=== PATIENT | male | born 1965 | race Caucasian/White ===

== ENCOUNTER 2019-04-09 05:28 | Emergency (ER) | payer OTHER ==
[2019-04-09 05:36] VITALS: BP 136/81
--- NOTE | 2019-04-09 05:56 | XRAY Report ---
Reason: L ring finger post reduction PIP joint dislocation Procedure Date: 04/09/2019 Accession Number: [id number] / [id number] Procedure: XR - Finger(s) LT CPT Code: FULL RESULT: EXAM: LEFT 1st/2nd/3rd/4th/5th DIGIT RADIOGRAPHY EXAM DATE: 04/09/2019 05:46 AM. CLINICAL HISTORY: L ring finger post reduction PIP joint dislocation. COMPARISON: None. TECHNIQUE: 3 views. FINDINGS: Bones: Small bone fragment at the lateral aspect of the head of the proximal phalanx of the ring finger. Remaining bone architecture and alignment are intact. Joints: Normal. No subluxations. Soft Tissues: Soft tissue swelling about the middle interphalangeal joint of the ring finger. IMPRESSION: Findings which may reflect a small fracture at the DIP joint status post reduction. RADIA
--- NOTE | 2019-04-09 06:26 | ED Physician Documentation ---
PD HPI UPPER EXT INJURY - Stated complaint Stated Complaint: 3' FALL - Chief complaint Chief Complaint: Trauma Ext - History obtained from History obtained from: Patient, EMS - History of Present Illness Location: Left, Finger (ring) Type of injury: Fall Where injury occurred: Work Timing - onset: Today Timing - duration: Minutes Timing - details: Abrupt onset, Still present Improved by: Rest, Immobilization Worsened by: Moving, Palpating Associated symptoms: Swelling. 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 He has landed on his hand and dislocated his left ring finger at the PIP joint. Review of Systems Constitutional: denies: Fever Respiratory: denies: Cough GI: denies: Vomiting, Constipation, Diarrhea PD PAST MEDICAL HISTORY - Past Medical History Past Medical History: No - Past Surgical History Past Surgical History: No - Present Medications Home Medications: Ambulatory Orders Medication Instructions Recorded Confirmed HYDROcod/ACETAM 5/325 [Vicodin 1 - 2 ea PO Q6H PRN #15 tablet 07/27/13 5/325] No Known Home Medications 07/27/13 07/27/13 - Allergies Allergies/Adverse Reactions: Allergies Allergy/AdvReac Type Severity Reaction Status Date / Time Penicillins Allergy Intermediate Rash Verified 04/09/19 05:31 - Social History Does the pt smoke?: No Smoking Status: Never smoker Does the pt drink ETOH?: Yes Does the pt have substance abuse?: No - Immunizations Immunizations are current?: No - POLST Patient has POLST: No PD ED PE NORMAL - Vitals Vital signs reviewed: Yes (hypertensive mild ) - General General: Alert and oriented X 3, No acute distress, Well developed/nourished - HEENT HEENT: Atraumatic, PERRL, EOMI - Neck Neck: Supple, no meningeal sign, No bony TTP - Respiratory Respiratory: No respiratory distress - Derm Derm: Normal color, Warm and dry, No rash - Extremities Extremities: Other (There is dislocation deformity of the PIP joint of the left hand The distal portion is displaced volar. This is reduced with traction and flexion with resultant appearnce of normal appearing finger distal n/v is intact. ) - Neuro Neuro: Alert and oriented X 3, lens edger 2-12 intact, No motor deficit, No sensory deficit, Normal speech Eye Opening: Spontaneous Motor: Obeys Commands Verbal: Oriented GCS Score: 15 - Psych Psych: Normal mood, Normal affect Results - Vitals Vitals: Vital Signs - 24 hr 04/09/19 05:31 Temperature 36.6 C Heart Rate 75 Respiratory 16 Rate Blood Pressure 136/81 H O2 Saturation 98 Oxygen O2 Source Room air - Rads (name of study) finger Radiology: Prelim report reviewed (Impression: Findings which may reflect a small fracture at the PIP joint status post reduction), EMP read indepedently, See rad report Procedures - Reduction Body part reduced: Left, Finger (ring) Fracture or dislocation: Dislocation Anesthesia: Other (soothing voice) Reduction aftercare: NV intact, Xray confirms reduction, Splint applied, Patient tolerated well PD MEDICAL DECISION MAKING - ED course Complexity details: reviewed results, re-evaluated patient, considered differential, d/w patient ED course: 53-year-old male with a fall inside of a semi-at work today has dislocated his left ring finger and this is reduced shortly after his arrival here in post reduction films show a tiny chip fragment of the lateral aspect of the proximal phalange. The patient's fingers are eileen taped he is instructed to wear this for approximately 2 weeks at which time he should be able to use his finger without difficulty. Departure - Departure Disposition: 01 Home, Self Care Clinical Impression: Dislocation of proximal interphalangeal joint of left ring finger, initial encounter Condition: Stable Instructions: ED Dislocation Finger Redu Follow-Up: Jp Count Includes [facility] [Provider Group] Forms: Activity restrictions
== END 2019-04-09 06:40 | disposition home or self-care (01) ==
LOC: EDUNIT# → ED 05:28
DX: S63.295A Dislocation of distal interphalangeal joint of left ring finger, initial encounter (principal); W18.09XA Striking against other object with subsequent fall, initial encounter; Y93.89 Activity, other specified; Y99.0 Civilian activity done for income or pay
CPT/HCPCS: 1040M; 26770; 73140; 99282; 99283

== ENCOUNTER 2019-05-09 09:35 | Outpatient (CLI) | payer OTHER ==
--- NOTE | 2019-05-09 11:51 | XRAY Report ---
Reason: DISLOCATION OF PROXIMAL INTERPHALANGEAL JOINT OF L Procedure Date: 05/09/2019 Accession Number: [id number] / [id number] Procedure: XR - Hand 3 View LT CPT Code: FULL RESULT: EXAM: LEFT HAND RADIOGRAPHY EXAM DATE: 05/09/2019 09:57 AM. CLINICAL HISTORY: Dislocation of proximal interphalangeal joint of left 4th digit. Still has pain and difficulty straightening it out/placing it flat. COMPARISON: FINGER(S) LT 04/09/2019 5:29 AM. TECHNIQUE: 3 views. FINDINGS: Bones: Again seen is a 1 mm thin linear osseous density projecting over the proximal interphalangeal joint space medially, 4th finger. This is felt to represent an avulsion injury, possibly intra-articular. No other fractures are detected. Joints: No dislocation. Soft Tissues: Persistent soft tissue swelling is seen about the proximal 4th interphalangeal joint. IMPRESSION: Redemonstration of small osseous fragment in the region of the 4th proximal interphalangeal joint as described. RADIA
== END 2019-05-09 09:36 | disposition home or self-care (01) ==
LOC: DI 09:35
PROVIDERS: ATTEND Family Medicine
DX: S63.285A Dislocation of proximal interphalangeal joint of left ring finger, initial encounter (principal)

== ENCOUNTER 2024-03-03 07:59 | Observation (INO) ==
[2024-03-03 08:39] LABS: BASOPHILS # (AUTO) 0.1 10^3/uL (0.0-0.1); BASOPHILS % (AUTO) 0.5 %; HCT - HEMATOCRIT 33.1 % (42.0-52.0); HGB - HEMOGLOBIN 11.5 g/dL (14.0-18.0); LYMPHOCYTES # (AUTO) 0.5 10^3/uL (1.5-3.5); LYMPHOCYTES % (AUTO) 4.7 %; MEAN CORPUSCULAR HEMOGLOBIN 31.2 pg (27.0-31.0); MEAN CORPUSCULAR HGB CONC 34.7 g/dL (32.0-36.0); MEAN CORPUSCULAR VOLUME 89.7 fL (80.0-94.0); MEAN PLATELET VOLUME 8.9 fL (7.4-11.4); MONOCYTES # (AUTO) 0.6 10^3/uL (0.0-1.0); MONOCYTES % (AUTO) 5.7 %; NEUTROPHILS # (AUTO) 9.4 10^3/uL (1.5-6.6); NEUTROPHILS % (AUTO) 88.8 %; PLT - PLATELET COUNT 477 10^3/uL (130-450); RED BLOOD COUNT 3.69 10^6/uL (4.70-6.10); RED CELL DISTRIBUTION WIDTH 11.6 % (12.0-15.0); WHITE BLOOD COUNT 10.6 x10^3/uL (4.8-10.8)
--- NOTE | 2024-03-03 08:42 | ED Physician Documentation ---
PD HPI CHEST PAIN - Stated complaint Stated Complaint: CHEST PAIN,SOA - Chief complaint Chief Complaint: Cardiac - History obtained from History obtained from: Patient - History of Present Illness Timing - onset: Yesterday Timing - duration: Days (1-2), Weeks (onset of initial illness 3 weeks ago along with other family members with COVID. pt remained ill with cough which has incresed along with dyspnea and right poleuritic chest pain the past few days, concurrent with general weakness, confusion, and somnolence. worse pain right chest with cough/breath.) Timing - details: Gradual onset, Still present Quality: Sharp, Stabbing, Pain Location: Right chest (lateral lower ribs/costochondral area.) Radiation: Back. No: Abdominal Worsened by: Inspiration Associated symptoms: Shortness of air, Nausea (with less appetite and intake for the past week.), General Weakness, Cough Recently seen: Not recently seen Review of Systems Constitutional: reports: Fever Nose: reports: Congestion Cardiac: denies: Palpitations, Pedal edema, Calf pain Respiratory: reports: Dyspnea, Cough, Wheezing GI: reports: Nausea. denies: Vomiting, Diarrhea Neurologic: reports: Generalized weakness, Altered mental status (the past 1-2 days) PD PAST MEDICAL HISTORY - Past Medical History Past Medical History: No Cardiovascular: None Respiratory: None - Past Surgical History Past Surgical History: No - Present Medications Home Medications: Ambulatory Orders Medication Instructions Recorded Confirmed No Known Home Medications 03/03/24 03/03/24 - Allergies Allergies/Adverse Reactions: Allergies Allergy/AdvReac Type Severity Reaction Status Date / Time Penicillins Allergy Intermediate Rash Verified 03/03/24 08:23 - Social History Does the pt smoke?: No Smoking Status: Never smoker Does the pt drink ETOH?: Yes Does the pt have substance abuse?: No - Immunizations Immunizations are current?: No - POLST Patient has POLST: No PD ED PE NORMAL - Vitals Vital signs reviewed: Yes - General General: No: Alert and oriented X 3 (somewhat blank look, but does answer questions sluggishly. ), Well developed/nourished (frail appearance. ) - HEENT HEENT: Pharynx benign. No: Moist mucous membranes - Neck Neck: Supple, no meningeal sign, No adenopathy - Cardiac Cardiac: RRR, No murmur - Respiratory Respiratory: No respiratory distress, Other (right chestwall tednerness without crepitance at lateral costal margin. No rash nor sores. Not tender in back.). No: Clear bilaterally (coarse sounds both sides, more to right lower. No crackles. Diffuse mild exp wheezing. No accessory muscle use. ) - Abdomen Abdomen: Soft, Non tender - Derm Derm: Normal color, Warm and dry - Extremities Extremities: No edema, No calf tenderness / cord - Neuro Neuro: No motor deficit. No: Alert and oriented X 3 (person and somewhat place. sluggish responses. ), Normal speech Eye Opening: Spontaneous Motor: Obeys Commands Verbal: Confused GCS Score: 14 Results - Vitals Vitals: Vital Signs - 24 hr 03/03/24 03/03/24 03/03/24 08:17 09:19 09:44 Temperature 36 C L Heart Rate 88 69 76 Respiratory 41 H 17 16 Rate Blood Pressure 140/71 H 134/81 H O2 Saturation 99 95 03/03/24 03/03/24 03/03/24 10:14 10:30 11:00 Temperature Heart Rate 80 75 64 Respiratory 16 15 12 Rate Blood Pressure 140/66 H 132/71 H 140/75 H O2 Saturation 97 100 98 03/03/24 03/03/24 11:30 12:00 Temperature 36.2 C L Heart Rate 76 91 Respiratory 16 18 Rate Blood Pressure 139/74 H 143/77 H O2 Saturation 96 98 Oxygen O2 Source Room air - Labs Labs: Laboratory Tests 03/03/24 03/03/24 03/03/24 08:33 08:33 08:33 WBC 10.6 RBC 3.69 L Hgb 11.5 L Hct 33.1 L MCV 89.7 MCH 31.2 H MCHC 34.7 RDW 11.6 L Plt Count 477 H MPV 8.9 Neut # (Auto) 9.4 H Lymph # (Auto) 0.5 L [place] # (Auto) 0.6 Eos # (Auto) 0.0 Baso # (Auto) 0.1 Absolute Nucleated RBC 0.00 Nucleated RBC % 0.0 Sodium 121 L Potassium 3.6 Chloride 87 L Carbon Dioxide 25 Anion Gap 9.0 BUN 8 Creatinine 0.5 L Estimated GFR (MDRD) 170 Glucose 137 H Calcium 9.1 Magnesium 1.5 L Total Bilirubin 0.7 AST 21 ALT 27 Alkaline Phosphatase 42 Troponin I High Sens 2.4 Total Protein 7.2 Albumin 3.7 Globulin 3.5 Albumin/Globulin Ratio 1.1 Lipase < 10 L - Rads (name of study) chest xray Relevant Findings:: Prelim report reviewed (infiltrates bilateral lower lungs, atelectasis versus developing pneumonia. ), EMP independent interpretation of test PD Medical Decision Making - ED course Complexity details: reviewed results (CXR shows infiltrates lower lungs, atelectasis vs pneumonia; clinically certainly fits for pneumonia. ), considered differential (COVID 3 weeks ago with persistent illness and cough/dyspnea that is now worsening the past several days, associated with poor appetite, weakness, confused, worse dyspnea and right pleuritic chest pain. No edema.), d/w patient, d/w edi consultant (Hospitalist) ED course: He has coarse sounds kiera right c/w pneumonia and CXR without effusion nor PTX. No edema, leg pain, nor calf tenderness. CP seems pleuritic. His alertness and sluggish responses c/w low sodium. Presume from less intake and trying to hydrate water (brother says he was trying to get pt to drink more). Could be lung related to the pneumonia. INitial impression is of under hydration with illness, presume pneumonia, and pleurisy. Sodium result very low, so did cut back on rate of NS after initial NS 1 liter. Had been given pain med and Toradol for pain as well. Neb treatment with improved breathing. Rocephin for presume bacgerial component now. Consider Zithromax as well for CAP. Departure - Departure Disposition: 66 [facility] DC/Xfer Clinical Impression: Acute hyponatremia, Pneumonia, Dyspnea, Costochondral chest pain, Volume depletion Condition: Stable Record reviewed to determine appropriate education?: Yes Discharge Date/Time: 03/03/24 13:47
[2024-03-03 08:54] LABS: ALBUMIN 3.7 g/dL (3.2-5.5); ALBUMIN/GLOBULIN RATIO 1.1 (1.0-2.2); ALKALINE PHOSPHATASE 42 IU/L (42-121); ALT ALANINE AMINOTRANSFERASE 27 IU/L (10-60); AST ASPARTATE AMINOTRANSFERASE 21 IU/L (10-42); BILIRUBIN,TOTAL 0.7 mg/dL (0.2-1.0); BUN - BLOOD UREA NITROGEN 8 mg/dL (6-20); CALCIUM 9.1 mg/dL (8.5-10.3); CARBON DIOXIDE - CO2 25 mmol/L (21-32); CHLORIDE 87 mmol/L (101-111); CREATININE 0.5 mg/dL (0.6-1.3); GFR - MDRD 170 (>89); GLUCOSE 137 mg/dL (74-104); POTASSIUM 3.6 mmol/L (3.5-4.5); SODIUM 121 mmol/L (135-145); TOTAL PROTEIN 7.2 g/dL (6.4-8.9)
--- NOTE | 2024-03-03 08:55 | XRAY Report ---
PROCEDURE: Chest 1V INDICATIONS: Chest pain TECHNIQUE: One view of the chest was acquired. COMPARISON: None. FINDINGS: Surgical changes and devices: None. Lungs and pleura: No pleural effusions or pneumothorax. Lung volumes are slightly decreased likely r elated to inspiratory effort. Mild patchy bibasilar opacities likely representing atelectasis. No den se consolidations. Mediastinum: Mediastinal contours appear normal. Heart size is normal. Bones and chest wall: No suspicious bony lesions. Overlying soft tissues appear unremarkable. IMPRESSION: Slightly diminished lung volumes with patchy bibasilar opacities favored to represent atelectasis. Ea rly developing pneumonia may have a similar appearance if clinically appropriate. No dense consolidat ions. Reviewed by: Harlan Ivan MD on 03/03/2024 8:54 AM PDT Approved by: Harlan Ivan MD on 03/03/2024 8:54 AM PDT Station ID: [id number]
[2024-03-03 09:02] LABS: TROPONIN I HIGH SENSITIVITY 2.4 ng/L (2.3-19.7)
[2024-03-03 09:06] LABS: LIPASE < 10 U/L (11-82)
[2024-03-03] MEDS: ALBUTEROL NEB 2.5 MG/3 ML INH STA (09:06)
[2024-03-03] MEDS: KETOROLAC 15 MG/ML VIAL IVP STA (09:15)
[2024-03-03] MEDS: HYDROmorphone 1 MG/ML CARPUJECT IVP STA (09:15)
[2024-03-03] MEDS: ONDANSETRON 4 MG/2 ML VIAL IVP STA (09:37)
[2024-03-03] MEDS: LIDOCAINE PATCH 4% TOP STA (09:40)
[2024-03-03] MEDS: cefTRIAXone 1 GM VIAL IVP STA (10:11)
[2024-03-03] MEDS: DROPERIDOL 5 MG/2 ML VIAL IVP STA (10:12)
[2024-03-03] MEDS: SODIUM CHLORIDE 0.9% 1,000 ML IV STA (11:02)
[2024-03-03] MEDS: SODIUM CHLORIDE 0.9% 500 ML IV STA (11:02)
[2024-03-03] MEDS ORDERED: PROCHLORPERAZINE 10 MG/2 ML VIAL IVP PRN (12:24)
[2024-03-03] MEDS ORDERED: ACETAMINOPHEN 325 MG TABLET PO PRN (12:24)
[2024-03-03] MEDS ORDERED: ONDANSETRON 4 MG/2 ML VIAL IVP PRN (12:24)
[2024-03-03] MEDS ORDERED: IBUPROFEN 600 MG TABLET PO PRN (12:24)
[2024-03-03] MEDS ORDERED: HYDROcod/ACETAM 10 MG/325 MG TABLET PO PRN (12:24)
[2024-03-03] MEDS ORDERED: MELATONIN 3 MG TABLET PO PRN (12:27)
--- NOTE | 2024-03-03 12:41 | HISTORY & PHYSICAL EXAMINATION ---
Chief Complaint - Chief Complaint Chief Complaint: My right chest hurts History of Present Illness - Admitted From Admitted From:: [facility] Emergency Department - History Obtained From Records Reviewed: EMR History obtained from: Patient and brother Exam Limitations: None - History of Present Illness HPI Comment/Other: Mr. Michael Schmitt is a 58-year-old gentleman with no past medical history who presents with right-sided chest pain. He does not have a primary care provider and has not seen any medical provider since he was seen in the emergency department approximately 10 years ago for a fractured clavicle. He has no known chronic medical conditions and he does not take any medications at home. Family has noticed that over the past several months he is been becoming increasingly weak and looking "thinner" and likely losing weight more rapidly over the past month. It is unclear how much weight loss he has had but at least 5 to 10 pounds in the past month. He has not had many chronic symptoms aside from worsening issues with low back pain over the past several months, which family and the patient attribute to lifting heavy objects at at work. Approximately 3 weeks ago the patient and multiple other family members developed viral symptoms with subjective fevers, cough, myalgias and poor appetite. The patient did not take a COVID test, but is family members did and they were positive for COVID-19. His family members improved after about 1 week however the patient has not been doing well over the past 3 weeks with continued poor appetite, malaise, fatigue and generalized weakness. His cough initially had resolved but in the past several days he has been coughing more and bringing up some clear phlegm. No reports of ongoing fevers but he has not been eating or drinking as much is normal. No reports of nausea, vomiting, diarrhea, melena, abdominal pain, orthopnea, PND. Over the past 24 hours he has developed occasional right-sided chest pain that seems to be present with coughing as well as with deep breathing. It is sharp in nature and nonradiating. Due to these symptoms he came to the emergency department for further evaluation. In the emergency department he was afebrile with normal vital signs and saturating well on room air. He had no focal neurologic deficits though his mentation did seem slow though he was oriented x 3. He did have issues with nausea but no vomiting in the emergency department. His chest x-ray showed patchy bibasilar opacities that may be atelectasis versus pneumonia. His EKG was nonischemic and his troponin was negative. His labs showed a normal WBC however his sodium level was 121 and magnesium level was 1.5. Given possible pneumonia he was given IV ceftriaxone along with a 500 cc normal saline bolus and placed on normal saline at 200 cc/hr, and admitted for further care. History - Past Medical History Cardiovascular: reports: None Respiratory: reports: None Neuro: reports: None Endocrine/Autoimmune: reports: None GI: reports: None HOT BALLER: reports: None : reports: None HEENT: reports: None Psych: reports: None Musculoskeletal: reports: Chronic back pain MRSA Hx?: No - Past Surgical History Other past surgical history: Denies any surgical history - Family & Social History Family History: Mother: Diabetes, Type 2 - Substance History Use: Uses substance without health or social issues: NONE - POLST Patient has POLST: No Meds/Allgy - Home Medications Home Medications: Ambulatory Orders Medication Instructions Recorded Confirmed No Known Home Medications 03/03/24 03/03/24 - Allergies Allergies/Adverse Reactions: Allergies Allergy/AdvReac Type Severity Reaction Status Date / Time Penicillins Allergy Intermediate Rash Verified 03/03/24 08:23 Review of Systems - Constitutional Constitutional: reports: Fatigue, Fever, Chills, Malaise, Weakness, Poor appetite, Weight loss - Eyes Eyes: reports: Blurred vision - Ears, Nose & Throat Ears, Nose & Throat: reports: Tinnitus, Vertigo - Cardiovascular Cariovascular: reports: Chest pain. denies: Palpitations, Lightheadedness, Syncope, Exertional dyspnea - Respiratory Respiratory: reports: Cough, Sputum production, Wheezing. denies: Hemoptysis, Orthopnea, SOB at rest - Gastrointestinal Gastrointestinal: reports: Nausea. denies: Abdominal pain, Diarrhea, Black stools, Bloody stools, Vomiting - Genitourinary Genitourinary: denies: Hematuria - Musculoskeletal Musculoskeletal: reports: Back pain, Muscle aches - Integumentary Integumentary: reports: Rash - Neurological Neurological: reports: General weakness. denies: Focal weakness, Dizziness, Numbness - Endocrine Endocrine: denies: Polydypsia, Polyphagia - Hematologic/Lymphatic Hematologic/Lymphatic: denies: Bruising Exam - Vital Signs Reviewed Vital Signs: Yes Vital Signs: Vital Signs x48h Temp Pulse Resp BP Pulse Ox 03/03/24 12:00 36.2 C L 91 18 143/77 H 98 03/03/24 11:30 76 16 139/74 H 96 03/03/24 11:00 64 12 140/75 H 98 03/03/24 10:30 75 15 132/71 H 100 03/03/24 10:14 80 16 140/66 H 97 03/03/24 09:44 76 16 134/81 H 95 03/03/24 09:19 69 17 03/03/24 08:17 36 C L 88 41 H 140/71 H 99 - Physical Exam General Appearance: positive: Other (Drowsy, but interactive though slow to answer. Appears chronically ill and older than stated age. No acute distress.) Eyes Bilateral: positive: Normal inspection, PERRL, EOMI ENT: positive: ENT inspection nml, Pharynx nml, No signs of dehydration Neck: positive: Nml inspection, Thyroid nml, No JVD, Trachea midline Respiratory: positive: No respiratory distress, Wheezes, Rales (Inspiratory crackles in left posterior lung field). negative: Rhonchi Cardiovascular: positive: Regular rate & rhythm, No murmur, No gallop Peripheral Pulses: positive: 2+ Abdomen: positive: Non-tender, Nml bowel sounds, No distention, Hepatomegaly Back: positive: Nml inspection Skin: positive: Color nml, No rash, Warm, Dry Extremities: positive: Nml appearance, No pedal edema Neurologic/Psychiatric: positive: Oriented x3, CN's nml (2-12), Motor nml, Sensation nml Reflexes: Knee (R): 2+, Knee (L): 2+ Babinski Reflex: Right: Down, Left: Down Sepsis Event Note (H) - Evaluation Current Stage of Sepsis: Ruled out Conclusion/Plan - Problem List (1) Hyponatremia Conclusion/Plan: He has an unclear etiology for his hyponatremia, though the most likely thing is poor solute intake and dehydration. However he has had weight loss and he appears cachectic, which does raise concern for underlying malignancy. He does not follow with medical providers, thus he has not had any routine healthcare maintenance. -Received 500 cc normal saline bolus in the emergency department. -Will hold on further isotonic IV fluids, until sodium levels rechecked. -Recheck sodium level now. -Placed on fluid restriction. -Obtain TSH, cortisol, urinalysis, urine sodium. -Checking CT of his chest/abdomen/pelvis to evaluate for underlying malignancy. (2) CAP (community acquired pneumonia) Conclusion/Plan: He has a history of a viral syndrome approximately 3 weeks ago with multiple family members being positive for COVID. He did not test himself for COVID, however it is presumed that he did have COVID given his sick contacts and similar symptoms to family. He only recently started to redevelop a cough that is now productive of clear sputum, with a chest x-ray showing atelectasis versus infiltrate. -Will continue IV ceftriaxone and azithromycin for now. -Check COVID/flu/RSV. If he is COVID-positive, he would be outside the window for any directed therapies. -Check procalcitonin. Blood cultures were not obtained prior to IV antibiotics. As he is not septic, will hold off on blood cultures at this time. (3) Pleuritic chest pain Conclusion/Plan: Most likely this is musculoskeletal in nature from coughing though could be pleurisy from possible pneumonia. -Will check CTA of the chest to rule out PE as we were going to obtain a CT scan regardless to rule out malignancy. (4) Weight loss Conclusion/Plan: Family feel that he has been losing weight since earlier this year though it is unclear how much. In the past 3 weeks since he became ill he has lost at least 5 to 10 pounds. -Obtain CT scans of his chest/abdomen/pelvis to rule out occult malignancy. -Check A1c. (5) Hypomagnesemia Conclusion/Plan: -Will give IV magnesium replacement. -Recheck magnesium level tomorrow morning. (6) Thrombocytosis Conclusion/Plan: Likely reactional in nature due to his acute illness. Platelet count is only minimally elevated at 477. -Monitor CBC. - Lab Results Lab results reviewed: Yes Fish Bones: 03/03/24 08:33 03/03/24 08:33 Other Lab Results: Troponin 2.4 Lipase less than 10 Magnesium 1.5 AST 21, ALT 27, alkaline phosphatase 42, total protein 7.2, albumin 3.7, total bilirubin 0.7 - Diagnostic Imaging Results Diagnostic Imaging Results: positive: Final report reviewed Diagnostic Imaging Results Comments: Chest X-ray: Slightly diminished lung volumes with patchy bibasilar opacities favored to represent atelectasis. Early developing pneumonia may have a similar appearance if clinically appropriate. No dense consolidations. - EKG Results EKG Interpreted Independently: Yes EKG Findings: Per my read - Normal sinus rhythm, heart rate 89, normal axis, nonspecific intraventricular conduction delay, no pathologic Q waves, no ischemic ST-T wave changes. Core Measures - Anticipated LOS I expect patient to be DC'd or transferred within 96 hours.: Yes - DVT/VTE - Prophylaxis VTE/DVT Device ordered at admit?: No VTE/DVT Prophylaxis med ordered at admit?: Yes
[2024-03-03] MEDS ORDERED: iohexoL-300 100 ML VIAL ONE (12:48)
[2024-03-03 13:16] LABS: SODIUM 121 mmol/L (135-145); TRIGLYCERIDES 42 mg/dL
[2024-03-03 13:19] LABS: TROPONIN I HIGH SENSITIVITY < 2.3 ng/L (2.3-19.7)
[2024-03-03 13:22] LABS: PROCALCITONIN 0.06 ng/mL (<0.5)
[2024-03-03 13:30] LABS: THYROID STIMULATING HORMONE 0.63 uIU/mL (0.34-5.60)
[2024-03-03 14:21] LABS: INFLUENZA A- RESP PCR PANEL NOT DETECTED; INFLUENZA B - RESP PCR PANEL NOT DETECTED; RSV- RESP PCR PANEL NOT DETECTED
[2024-03-03 14:24] LABS: SARS-CoV-2 -RESP PCR PANEL DETECTED
[2024-03-03] MEDS: MAGNESIUM SULFATE 2 GRAM 2 GM/50 ML BAG IV ONE (14:30)
[2024-03-03] MEDS: ENOXAPARIN 40 MG/0.4 ML SYRINGE SUBQ SCH (14:31)
[2024-03-03] MEDS: AZITHROMYCIN INJ 500 MG in SODIUM CHLORIDE 0.9% 250 ML IV SCH (15:41)
--- NOTE | 2024-03-03 15:46 | CT Report ---
PROCEDURE: Abdomen/Pelvis W INDICATIONS: Weight loss, eval for malignancy CONTRAST: 100ml omni 300 TECHNIQUE: After the administration of intravenous contrast, a CT scan of the abdomen and pelvis was performed. Images were recorded and evaluated at appropriate window settings. Reformats: coronal and sagittal. F or radiation dose reduction, the following was used: automated exposure control, adjustment of mA and /or kV according to patient size. COMPARISON: None. FINDINGS: Image quality: Diagnostic. Lower chest: There is focal consolidation within the right middle lobe. Liver: No solid mass. Gallbladder: No intraluminal stone or debris. Biliary tree: No intrahepatic or extrahepatic dilation, accounting for age. Spleen: No splenomegaly. Pancreas: No pancreatic ductal dilation. Adrenals: No adrenal nodule. Kidneys and ureters: No hydronephrosis. No renal cystic lesion which requires follow up. No solid mas s. Stomach, bowel and peritoneum: No gastric or small bowel dilation. No abnormal wall thickening. No pa thologic free fluid. Lymph nodes: No central or retroperitoneal adenopathy. Vessels: No infrarenal aortic aneurysm. Patent portal vein. PELVIS Reproductive organs: Unremarkable. Bladder: No abnormal wall thickening, accounting for underdistention. Pelvic lymph nodes: No pelvic adenopathy by size criteria. Bones: No aggressive osseous abnormality. Other: No significant ventral or inguinal hernia. IMPRESSION: 1. Right middle lobe consolidation concerning for pneumonia in the appropriate clinical setting. 2. No CT evidence of abdominal malignancy. Reviewed by: Eve Glover MD on 03/03/2024 2:45 PM AKDT Approved by: Eve Glover MD on 03/03/2024 2:45 PM AKDT Station ID: [id number]
[2024-03-03] MEDS: SODIUM CHLORIDE FLUSH 0.9% 10 ML SYRINGE IVP SCH (15:50)
--- NOTE | 2024-03-03 16:00 | CT Report ---
PROCEDURE: Angio Chest INDICATIONS: Right pleurisy, evaluate for PE and pneumonia CONTRAST: 100ml omni 300 TECHNIQUE: After the administration of intravenous contrast, 2 mm axial images were acquired from the pulmonary apices to the posterior costophrenic angles during the arterial phase. In addition, 1 mm lung kernel and 5 mm soft tissue kernel reconstructions were performed. 3-dimensional coronal oblique maximum int ensity projection (MIP) reformats, 8 mm axial MIP, and 5 mm coronal and sagittal MPR reformats were t hen performed through the thorax. For radiation dose reduction, the following was used: automated exp osure control, adjustment of mA and/or kV according to patient size. COMPARISON: None. FINDINGS: Image quality: Excellent. Large vessels: No filling defects within the opacified pulmonary arteries, accounting for motion and contrast timing. No evidence of acute aortic syndrome or aortic aneurysm. Lungs and pleura: There is focal consolidation within the right middle lobe which demonstrates air br onchograms. The lungs are otherwise clear without effusion or pneumothorax. Mediastinum: Heart size is normal. No pericardial effusion. No large vessel abnormality. No mediastin al adenopathy by size criteria. Chest wall and lower neck: Thyroid is unremarkable. No axillary or supraclavicular adenopathy by size . Bones: No aggressive osseous abnormality. Upper Abdomen: Unremarkable. IMPRESSION: No pulmonary embolus. Right middle lobe pneumonia. Reviewed by: Eve Glover MD on 03/03/2024 2:59 PM AKDT Approved by: Eve Glover MD on 03/03/2024 2:59 PM AKDT Station ID: [id number]
[2024-03-03 16:37] LABS: BILIRUBIN,URINE NEGATIVE (NEGATIVE); GLUCOSE, URINE (UA) 100 mg/dL (NEGATIVE); KETONES,URINE (UA) NEGATIVE (NEGATIVE); LEUKOCYTE ESTERASE, URINE NEGATIVE (NEGATIVE); NITRITE,URINE NEGATIVE (NEGATIVE); OCCULT BLOOD,URINE NEGATIVE (NEGATIVE); PH,URINE 6.5 PH (5.0-7.5); PROTEIN,URINE NEGATIVE (NEGATIVE); UROBILINOGEN,URINE 0.2 (NORMAL) E.U./dL (NORMAL)
[2024-03-03 16:39] LABS: CLARITY,URINE CLEAR (CLEAR)
[2024-03-03 16:54] LABS: BACTERIA,URINE Rare /HPF (None Seen); RBC,URINE None Seen /HPF (0-5); SQUAMOUS EPITHELIAL CELL,UR NONE SEEN (<= Few); WBC,URINE 0-3 /HPF (0-3)
[2024-03-03] MEDS: SODIUM CHLORIDE 0.9% 1,000 ML IV SCH (17:23)
[2024-03-03] MEDS: iohexoL-300 100 ML VIAL IVP ONE (18:32)
[2024-03-04 05:45] LABS: BASOPHILS % (AUTO) 0.4 %; EOSINOPHILS % (AUTO) 0.1 %; HCT - HEMATOCRIT 31.3 % (42.0-52.0); HGB - HEMOGLOBIN 10.9 g/dL (14.0-18.0); LYMPHOCYTES # (AUTO) 0.6 10^3/uL (1.5-3.5); LYMPHOCYTES % (AUTO) 7.5 %; MEAN CORPUSCULAR HEMOGLOBIN 32.2 pg (27.0-31.0); MEAN CORPUSCULAR HGB CONC 34.8 g/dL (32.0-36.0); MEAN CORPUSCULAR VOLUME 92.3 fL (80.0-94.0); MEAN PLATELET VOLUME 9.3 fL (7.4-11.4); MONOCYTES # (AUTO) 0.8 10^3/uL (0.0-1.0); MONOCYTES % (AUTO) 9.4 %; NEUTROPHILS # (AUTO) 6.9 10^3/uL (1.5-6.6); NEUTROPHILS % (AUTO) 82.4 %; PLT - PLATELET COUNT 480 10^3/uL (130-450); RED BLOOD COUNT 3.39 10^6/uL (4.70-6.10); RED CELL DISTRIBUTION WIDTH 11.8 % (12.0-15.0); WHITE BLOOD COUNT 8.4 x10^3/uL (4.8-10.8)
[2024-03-04 06:10] LABS: CALCIUM 8.8 mg/dL (8.5-10.3); CREATININE 0.5 mg/dL (0.6-1.3); PHOSPHORUS 2.7 mg/dL (2.5-5.0); POTASSIUM 3.9 mmol/L (3.5-4.5)
[2024-03-04 07:27] LABS: ESTIMATED AVERAGE GLUCOSE 105 mg/dL (70-100); HEMOGLOBIN A1c% 5.3 % (4.27-6.07)
[2024-03-04] MEDS: DEXTROSE 5% 1,000 ML IV SCH ×2 (08:21→13:31)
[2024-03-04] MEDS: cefTRIAXone 1 GM in SODIUM CHLORIDE 0.9% MINIBAG 100 ML IV SCH (08:22)
--- NOTE | 2024-03-04 13:02 | PROVIDER PROGRESS NOTE ---
Subjective - Prog Note Date Prog Note Date: 03/04/24 Prog Note Time: 13:00 - Subjective Pt reports feeling: Improved Subjective: No acute events since admission. He reports feeling much better this morning and he does appear more interactive and appropriate on examination. He has no specific complaints aside from he has to urinate frequently. Denies having any fevers, chills, vomiting, diarrhea though he does still have some pleuritic pain on the right side and a cough that is nonproductive. This morning his serum sodium has improved but increased to rapidly. He appears alert and oriented without any neurologic deficit. Objective - Vital Signs/Intake & Output Reviewed Vital Signs: Yes Vital Signs: Vital Signs x48h Temp Pulse Resp BP Pulse Ox 03/04/24 08:32 37.1 C 75 16 123/71 97 Intake & Output: Intake & Output 03/01/24 03/02/24 03/03/24 03/04/24 23:59 23:59 23:59 23:59 Intake Total 2311.75 1978.5 Output Total 3920 1650 Balance -1608.25 328.5 - Objective General Appearance: positive: Other (Alert and oriented today. Appears chronically ill and older than stated age however no acute distress. Mentation is much better than yesterday.) Eyes Bilateral: positive: Normal inspection, PERRL, EOMI ENT: positive: ENT inspection nml, Pharynx nml, No signs of dehydration Neck: positive: Nml inspection, Thyroid nml, No JVD, Trachea midline Respiratory: positive: No respiratory distress, Rales (Mild inspiratory crackles on the right side.). negative: Wheezes, Rhonchi Cardiovascular: positive: Regular rate & rhythm, No murmur, No gallop Peripheral Pulses: 2+ Dorsalis pedis (R), 2+ Dorsalis pedis (L) Abdomen: positive: Non-tender, No organomegaly, Nml bowel sounds, No distention Back: positive: Nml inspection Skin: positive: Color nml, No rash, Warm, Dry Extremities: positive: Nml appearance, No pedal edema Neurologic/Psychiatric: positive: Oriented x3, CN's nml (2-12), Motor nml, Sensation nml - Lab Results Fish Bones: 03/04/24 05:17 03/04/24 10:52 Other Labs: Lab Results x24hrs 03/04/24 03/04/24 03/04/24 Range/Units 10:52 05:17 05:17 WBC (4.8-10.8) x10^3/uL RBC (4.70-6.10) 10^6/uL Hgb (14.0-18.0) g/dL Hct (42.0-52.0) % MCV (80.0-94.0) fL MCH (27.0-31.0) pg MCHC (32.0-36.0) g/dL RDW (12.0-15.0) % Plt Count (130-450) 10^3/uL MPV (7.4-11.4) fL Neut # (Auto) (1.5-6.6) 10^3/uL Lymph # (Auto) (1.5-3.5) 10^3/uL [place] # (Auto) (0.0-1.0) 10^3/uL Eos # (Auto) (0.0-0.7) 10^3/uL Baso # (Auto) (0.0-0.1) 10^3/uL Absolute Nucleated RBC x10^3/uL Nucleated RBC % /100WBC Sodium 135 134 L (135-145) mmol/L Potassium 3.9 (3.5-4.5) mmol/L Chloride 100 L (101-111) mmol/L Carbon Dioxide 29 (21-32) mmol/L Anion Gap 5.0 L (6-13) BUN 5 L (6-20) mg/dL Creatinine 0.5 L (0.6-1.3) mg/dL Estimated GFR (MDRD) 170 (>89) Glucose 121 H (74-104) mg/dL Estimat Average Glucose 105 H (70-100) mg/dL Hemoglobin A1c % 5.3 (4.27-6.07) % Calcium 8.8 (8.5-10.3) mg/dL Phosphorus 2.7 (2.5-5.0) mg/dL Troponin I High Sens (2.3-19.7) ng/L Triglycerides mg/dL Procalcitonin Immunoas (<0.5) ng/mL TSH (0.34-5.60) uIU/mL Random Cortisol ug/dL Urine Color Urine Clarity (CLEAR) Urine pH (5.0-7.5) PH Ur Specific [place] (1.002-1.030) Urine Protein (NEGATIVE) mg/dL Urine Glucose (UA) (NEGATIVE) mg/dL Urine Ketones (NEGATIVE) mg/dL Urine Occult Blood (NEGATIVE) Urine Nitrite (NEGATIVE) Urine Bilirubin (NEGATIVE) Urine Urobilinogen (NORMAL) E.U./dL Ur Leukocyte Esterase (NEGATIVE) Urine RBC (0-5) /HPF Urine WBC (0-3) /HPF Ur Squamous Epith Cells (<= Few) Urine Bacteria (None Seen) /HPF Urine Culture Comments Urine Sodium mmol/L Nasal Influenza B PCR Nasal Influenza A PCR Nasal RSV (PCR) Nasal SARS-CoV-2 (PCR) 03/04/24 03/03/24 03/03/24 Range/Units 05:17 20:01 16:30 WBC 8.4 (4.8-10.8) x10^3/uL RBC 3.39 L (4.70-6.10) 10^6/uL Hgb 10.9 L (14.0-18.0) g/dL Hct 31.3 L (42.0-52.0) % MCV 92.3 (80.0-94.0) fL MCH 32.2 H (27.0-31.0) pg MCHC 34.8 (32.0-36.0) g/dL RDW 11.8 L (12.0-15.0) % Plt Count 480 H (130-450) 10^3/uL MPV 9.3 (7.4-11.4) fL Neut # (Auto) 6.9 H (1.5-6.6) 10^3/uL Lymph # (Auto) 0.6 L (1.5-3.5) 10^3/uL [place] # (Auto) 0.8 (0.0-1.0) 10^3/uL Eos # (Auto) 0.0 (0.0-0.7) 10^3/uL Baso # (Auto) 0.0 (0.0-0.1) 10^3/uL Absolute Nucleated RBC 0.00 x10^3/uL Nucleated RBC % 0.0 /100WBC Sodium 132 L (135-145) mmol/L Potassium (3.5-4.5) mmol/L Chloride (101-111) mmol/L Carbon Dioxide (21-32) mmol/L Anion Gap (6-13) BUN (6-20) mg/dL Creatinine (0.6-1.3) mg/dL Estimated GFR (MDRD) (>89) Glucose (74-104) mg/dL Estimat Average Glucose (70-100) mg/dL Hemoglobin A1c % (4.27-6.07) % Calcium (8.5-10.3) mg/dL Phosphorus (2.5-5.0) mg/dL Troponin I High Sens (2.3-19.7) ng/L Triglycerides mg/dL Procalcitonin Immunoas (<0.5) ng/mL TSH (0.34-5.60) uIU/mL Random Cortisol ug/dL Urine Color Urine Clarity (CLEAR) Urine pH (5.0-7.5) PH Ur Specific [place] (1.002-1.030) Urine Protein (NEGATIVE) mg/dL Urine Glucose (UA) (NEGATIVE) mg/dL Urine Ketones (NEGATIVE) mg/dL Urine Occult Blood (NEGATIVE) Urine Nitrite (NEGATIVE) Urine Bilirubin (NEGATIVE) Urine Urobilinogen (NORMAL) E.U./dL Ur Leukocyte Esterase (NEGATIVE) Urine RBC (0-5) /HPF Urine WBC (0-3) /HPF Ur Squamous Epith Cells (<= Few) Urine Bacteria (None Seen) /HPF Urine Culture Comments Urine Sodium 32.3 mmol/L Nasal Influenza B PCR Nasal Influenza A PCR Nasal RSV (PCR) Nasal SARS-CoV-2 (PCR) 03/03/24 03/03/24 03/03/24 Range/Units 16:30 13:15 12:41 WBC (4.8-10.8) x10^3/uL RBC (4.70-6.10) 10^6/uL Hgb (14.0-18.0) g/dL Hct (42.0-52.0) % MCV (80.0-94.0) fL MCH (27.0-31.0) pg MCHC (32.0-36.0) g/dL RDW (12.0-15.0) % Plt Count (130-450) 10^3/uL MPV (7.4-11.4) fL Neut # (Auto) (1.5-6.6) 10^3/uL Lymph # (Auto) (1.5-3.5) 10^3/uL [place] # (Auto) (0.0-1.0) 10^3/uL Eos # (Auto) (0.0-0.7) 10^3/uL Baso # (Auto) (0.0-0.1) 10^3/uL Absolute Nucleated RBC x10^3/uL Nucleated RBC % /100WBC Sodium 121 L (135-145) mmol/L Potassium (3.5-4.5) mmol/L Chloride (101-111) mmol/L Carbon Dioxide (21-32) mmol/L Anion Gap (6-13) BUN (6-20) mg/dL Creatinine (0.6-1.3) mg/dL Estimated GFR (MDRD) (>89) Glucose (74-104) mg/dL Estimat Average Glucose (70-100) mg/dL Hemoglobin A1c % (4.27-6.07) % Calcium (8.5-10.3) mg/dL Phosphorus (2.5-5.0) mg/dL Troponin I High Sens < 2.3 L (2.3-19.7) ng/L Triglycerides 42 mg/dL Procalcitonin Immunoas 0.06 (<0.5) ng/mL TSH 0.63 (0.34-5.60) uIU/mL Random Cortisol 29.5 ug/dL Urine Color YELLOW Urine Clarity CLEAR (CLEAR) Urine pH 6.5 (5.0-7.5) PH Ur Specific [place] <=1.005 (1.002-1.030) Urine Protein NEGATIVE (NEGATIVE) mg/dL Urine Glucose (UA) 100 H (NEGATIVE) mg/dL Urine Ketones NEGATIVE (NEGATIVE) mg/dL Urine Occult Blood NEGATIVE (NEGATIVE) Urine Nitrite NEGATIVE (NEGATIVE) Urine Bilirubin NEGATIVE (NEGATIVE) Urine Urobilinogen 0.2 (NORMAL) (NORMAL) E.U./dL Ur Leukocyte Esterase NEGATIVE (NEGATIVE) Urine RBC None Seen (0-5) /HPF Urine WBC 0-3 (0-3) /HPF Ur Squamous Epith Cells NONE SEEN (<= Few) Urine Bacteria Rare (None Seen) /HPF Urine Culture Comments NOT INDICATED Urine Sodium mmol/L Nasal Influenza B PCR NOT DETECTED Nasal Influenza A PCR NOT DETECTED Nasal RSV (PCR) NOT DETECTED Nasal SARS-CoV-2 (PCR) DETECTED A - Diagnostic Imaging Diagnostic Imaging Comments: CT Abdomen/Pelvis (03/03/24): 1. Right middle lobe consolidation concerning for pneumonia in the appropriate clinical setting. 2. No CT evidence of abdominal malignancy. CTA Chest (03/03/24): 1. No pulmonary embolus. 2. Right middle lobe pneumonia. Sepsis Event Note (H) - Evaluation Current Stage of Sepsis: Ruled out Assessment/Plan - Problem List (1) Hyponatremia Impression: The most likely cause is poor solute intake and dehydration. He has had ongoing weight loss and appears chronically unwell, but his CT imaging shows no evidence for malignancy. He does not follow with medical providers, thus he has not had any routine healthcare maintenance. -Continue fluid restriction. -TSH, cortisol, triglycerides are all unremarkable. Urine sodium is 32 and urine specific gravity is < 1.005. Cannot obtain osmolality testing as it takes several days to return, which would not be clinically relevant at that time. -His sodium level over-corrected this morning. He is clinically doing well and is improved. Will place on D5 IV fluids and give at least 1 liter D5 today. -Monitor serum sodium q6hr. (2) CAP (community acquired pneumonia) Impression: He has a history of a viral syndrome approximately 3 weeks ago with multiple family members being positive for COVID. He did not test himself for COVID, however it is presumed that he did have COVID given his sick contacts and similar symptoms to family. He only recently started to redevelop a cough that is now productive of clear sputum. -Will continue IV ceftriaxone and azithromycin. -CT Chest shows RML pneumonia, most likely bacterial/streptococcal in nature. -Blood cultures were not obtained prior to IV antibiotics. As he is not septic, will hold off on blood cultures at this time. Qualifiers: Laterality: right Lung location: middle lobe of lung Qualified Code(s): J18.9 - Pneumonia, unspecified organism (3) COVID-19 Impression: His COVID test returned positive at the time of admission. -Given that multiple family members were sick and diagnosed with COVID about thr ee weeks ago, which is the same time Mr. Schmitt got sick with similar symptoms, it is likely that his current COVID test is a persistently positive test and not an active/ongoing infection. -His admission pneumonia appears bacterial in nature as noted above. -Does not require specific therapies directed at COVID. (4) Pleuritic chest pain Impression: Has pleuritic chest pain on the right chest. Most likely this is pleurisy from his RML pneumonia. -CTA negative for PE. Troponin negative. -Treat pneumonia as noted above. Can consider ibuprofen PRN for pain. (5) Weight loss Impression: Family feel that he has been losing weight since earlier this year though it is unclear how much. In the past 3 weeks since he became ill he has lost at least 5 to 10 pounds, likely due to his COVID illness and current bacterial pneumonia. -CT imaging shows no malignancy. -A1c pending. -Encourage increased protein and caloric intake. (6) Hypomagnesemia Impression: Received IV magnesium supplementation yesterday. -Check magnesium level. (7) Thrombocytosis Impression: Likely reactional in nature due to his acute illness. Platelet count is only minimally elevated at 477. -Monitor CBC. Currently stable and mildly elevated.
--- NOTE | 2024-03-04 13:36 | PHARMACY PROGRESS NOTE ---
- Best Possible Medication History Admit Date and Time: 03/03/24 1224 Processed by: Pharmacy Medication History completed: Yes Patient Interview: Completed Secondary Source(s): Insurance records (PER PRESCRIPTION INSURANCE RECORDS AND PT INTERVIEW, NO HOME MEDICATIONS) As the person ultimately responsible for medication therapy, providers are able to order a medication from an existing home medication list in [facility] via the "Reconcile Routine" prior to Confirmation of that medication by field support technician. Such practice is discouraged except when the physician, in their clinical judgment, deems that a medical need exists for a medication without regard to previous use.
[2024-03-05 06:34] LABS: BASOPHILS # (AUTO) 0.1 10^3/uL (0.0-0.1); EOSINOPHILS % (AUTO) 0.6 %; HCT - HEMATOCRIT 35.6 % (42.0-52.0); HGB - HEMOGLOBIN 12.3 g/dL (14.0-18.0); LYMPHOCYTES # (AUTO) 0.8 10^3/uL (1.5-3.5); LYMPHOCYTES % (AUTO) 12.2 %; MEAN CORPUSCULAR HEMOGLOBIN 31.8 pg (27.0-31.0); MEAN CORPUSCULAR HGB CONC 34.6 g/dL (32.0-36.0); MEAN PLATELET VOLUME 9.2 fL (7.4-11.4); MONOCYTES # (AUTO) 0.7 10^3/uL (0.0-1.0); MONOCYTES % (AUTO) 10.6 %; NEUTROPHILS # (AUTO) 4.8 10^3/uL (1.5-6.6); NEUTROPHILS % (AUTO) 75.4 %; PLT - PLATELET COUNT 545 10^3/uL (130-450); RED BLOOD COUNT 3.87 10^6/uL (4.70-6.10); RED CELL DISTRIBUTION WIDTH 11.9 % (12.0-15.0); WHITE BLOOD COUNT 6.3 x10^3/uL (4.8-10.8)
[2024-03-05 06:49] LABS: CALCIUM 9.4 mg/dL (8.5-10.3); CREATININE 0.6 mg/dL (0.6-1.3); MAGNESIUM 1.7 mg/dL (1.7-2.3); PHOSPHORUS 2.7 mg/dL (2.5-5.0); POTASSIUM 4.1 mmol/L (3.5-4.5)
[2024-03-05] MEDS: SODIUM CHLORIDE FLUSH 0.9% 10 ML SYRINGE IVP PRN (12:00)
--- NOTE | 2024-03-05 14:59 | Discharge Summary ---
Discharge Plan Problem Reviewed?: Yes Disposition: Home, Self Care Condition: Stable Prescriptions: Azithromycin 500 mg PO DAILY 2 Days #2 tablet cefuroxime axetiL [Ceftin] 500 mg PO Q12H 4 Days #16 tablet Diet: Regular (Please limit you fluid intake to no more than 2000 ml per day) Activity Restrictions: No Restrictions Shower Restrictions: No Driving Restrictions: No Weight Bearing: Full Weight Health Concerns: You were admitted to the hospital after presenting with persistent nausea, weakness and confusion. You were placed in the hospital because your sodium level was significantly low at 120. Normal values for sodium are 135-145. Your sodium was low because you have not been eating very much food because of your illness, which was due to COVID-19. Despite not eating much you had been drinking water and that can dilute your blood, causing your sodium to become dangerously low. We gave you IV fluids that contained salt and this improved your sodium up to a normal range. Once you had a normal sodium level, your symptoms significantly improved. You are not confused anymore and you had no difficulty walking on your own. When you go home, be sure to use a little extra salt on food for the next few days and try not to drink excessive water, trying to maintain less than 2000 mL of water in a given day. He also came in because of right-sided chest pain and imaging showed that you had a right sided pneumonia. Sometimes a bacterial pneumonia can irritate the lining of your lung, which causes sharp right sided chest pain. You are prescribed an antibiotic as noted below that you can complete at home to finish the treatment for your pneumonia. You can take 400 mg ibuprofen every 6 hours as needed for your chest pain but only do this for the next 5 days maximum. Please be sure to establish with a primary care provider in the area so that they can review your health and help you get better. Plan of Treatment: NEW MEDICATIONS: 1. Cefuroxime (Ceftin) 250 mg tablets - take two tabs by mouth twice daily for four days, starting this evening 03/05/24 2. Azithromycin 500 mg tablet - take one tab by mouth twice daily for two days, starting 03/06/24 Additional Instructions or Follow Up instructions: Please be sure to establish with a primary care provider in the area to help with your health going forward and follow-up on how you are doing after this hospitalization. No Smoking: If you smoke, Please STOP! Call for help.
--- NOTE | 2024-03-05 15:14 | DISCHARGE SUMMARY ---
Discharge Summary Admit Date: 03/03/24 Discharge Date: 03/05/24 Discharging Provider: Sylvester Tejeda MD Primary Care Provider: None Code Status: Attempt Resuscitation Condition at Discharge: Stable Discharge Disposition: 01 Home, Self Care - DIAGNOSES Admission Diagnoses: Hyponatremia Discharge Diagnoses with Status of Each Condition: 1. Hyponatremia - resolved 2. Community Acquired Pneumonia - improved 3. Pleuritic Right Chest Pain - improved 4. Hypomagnesemia - resolved 5. COVID-19 Infection - stable 6. Unintentional Weight Loss - stable 7. Thrombocytosis - stable - HPI History of Present Illness: Mr. Michael Schmitt is a 58-year-old gentleman with no past medical history who prese nts with right-sided chest pain. He does not have a primary care provider and has not seen any medical provider since he was seen in the emergency department approximately 10 years ago for a fractured clavicle. He has no known chronic medical conditions and he does not take any medications at home. Family has noticed that over the past several months he is been becoming increasingly weak and looking "thinner" and likely losing weight more rapidly over the past month. It is unclear how much weight loss he has had but at least 5 to 10 pounds in the past month. He has not had many chronic symptoms aside from worsening issues with low back pain over the past several months, which family and the patient attribute to lifting heavy objects at at work. Approximately 3 weeks ago the patient and multiple other family members developed viral symptoms with subjective fevers, cough, myalgias and poor appetite. The patient did not take a COVID test, but is family members did and they were positive for COVID-19. His family members improved after about 1 week however the patient has not been doing well over the past 3 weeks with continued poor appetite, malaise, fatigue and generalized weakness. His cough initially had resolved but in the past several days he has been coughing more and bringing up some clear phlegm. No reports of ongoing fevers but he has not been eating or drinking as much is normal. No reports of nausea, vomiting, diarrhea, melena, abdominal pain, orthopnea, PND. Over the past 24 hours he has developed occasional right-sided chest pain that seems to be present with coughing as well as with deep breathing. It is sharp in nature and nonradiating. Due to these symptoms he came to the emergency department for further evaluation. In the emergency department he was afebrile with normal vital signs and saturating well on room air. He had no focal neurologic deficits though his mentation did seem slow though he was oriented x 3. He did have issues with nausea but no vomiting in the emergency department. His chest x-ray showed patchy bibasilar opacities that may be atelectasis versus pneumonia. His EKG was nonischemic and his troponin was negative. His labs showed a normal WBC however his sodium level was 121 and magnesium level was 1.5. Given possible pneumonia he was given IV ceftriaxone along with a 500 cc normal saline bolus and placed on normal saline at 200 cc/hr, and admitted for further care. - HOSPITAL COURSE Hospital Course: OVERVIEW OF HOSPITAL COURSE: He was admitted to the hospital primarily due to significant hyponatremia with a sodium of 120. His TSH, cortisol and triglyceride levels were all unremarkable and his urinalysis showed a specific gravity less than 1.005 and urine sodium of 32. Urine and serum osmolalities were not checked as these are send out test and take multiple days to return, at which time they would not be clinically relevant. He was placed on gentle normal saline IV fluids as it was felt that the most likely cause for his hyponatremia was poor solute intake and dehydration in the setting of only drinking free water. His serum sodium rapidly corrected into the 130s, to the point that he was given 1.5 L of D5W to slow the rate of correction. By hospital day 2 his sodium level was 134 and his mentation was significantly improved. He was alert and oriented without any focal deficit and he was able to ambulate effectively on his own without any need for assistance. At the time of discharge he was advised to use extra salt on food and to drink less than 2000 mL of water in a day. Part of his initial presentation was pleuritic right-sided chest pain. His chest x-ray did show findings concerning for pneumonia and a CTA of the chest was negative for pulmonary embolism but did show a dense right middle lobe pneumonia. This was likely cause for his pleuritic chest pain and his troponins were unremarkable. Due to unintentional weight loss a CT of the abdomen/pelvis was also obtained but negative for malignancy. The CT of his chest was likewise negative for malignancy as well. Of note he did test positive for COVID-19 however this was felt to be a persistent positive test in the setting of likely infection 3 weeks prior to admission given the fact that he had viral symptoms 3 weeks ago at the same time that several other family members had similar symptoms who all tested positive for COVID. He was discharged home in stable condition with prescriptions for Ceftin and azithromycin to complete course for his community-acquired pneumonia. He was advised to establish with a primary care provider so that he could undergo [facility] and have follow-up for this hospitalization. HOSPITAL COURSE BY PROBLEM: (1) Hyponatremia Impression: The most likely cause is poor solute intake and dehydration. He has had ongoing weight loss and appears chronically unwell, but his CT imaging shows no evidence for malignancy. He does not follow with medical providers, thus he has not had any routine healthcare maintenance. -Continue fluid restriction. -TSH, cortisol, triglycerides are all unremarkable. Urine sodium is 32 and urine specific gravity is < 1.005. Cannot obtain osmolality testing as it takes several days to return, which would not be clinically relevant at that time. -His sodium level over-corrected after presentation. He is clinically doing well and is improved. Received 1.5 liters D5 with stabilization of sodium level. -Sodium 134 this morning. (2) CAP (community acquired pneumonia) Impression: He has a history of a viral syndrome approximately 3 weeks ago with multiple family members being positive for COVID. He did not test himself for COVID, however it is presumed that he did have COVID given his sick contacts and similar symptoms to family. He only recently started to redevelop a cough that is now productive of clear sputum. -Switch to Ceftin 500 mg BID for 4 days and Azithromycin 500 mg daily for two days. -CT Chest shows RML pneumonia, most likely bacterial/streptococcal in nature. -Blood cultures were not obtained prior to IV antibiotics. As he is not septic, blood cultures were not obtained. (3) COVID-19 Impression: His COVID test returned positive at the time of admission. -Given that multiple family members were sick and diagnosed with COVID about three weeks ago, which is the same time Mr. Schmitt got sick with similar symptoms, it is likely that his current COVID test is a persistently positive test and not an active/ongoing infection. -His admission pneumonia appears bacterial in nature as noted above. -Does not require specific therapies directed at COVID. (4) Pleuritic chest pain Impression: Has pleuritic chest pain on the right chest. Most likely this is pleurisy from his RML pneumonia. -CTA negative for PE. Troponin negative. -Treat pneumonia as noted above. Can consider ibuprofen PRN for pain. (5) Weight loss Impression: Family feel that he has been losing weight since earlier this year though it is unclear how much. In the past 3 weeks since he became ill he has lost at least 5 to 10 pounds, likely due to his COVID illness and current bacterial pneumonia. -CT imaging shows no malignancy. -A1c pending. -Encourage increased protein and caloric intake. (6) Hypomagnesemia Impression: Received IV magnesium supplementation yesterday. -Check magnesium level. (7) Thrombocytosis Impression: Likely reactional in nature due to his acute illness. Platelet count is only minimally elevated at 477. -Monitor CBC. Currently stable and mildly elevated. - ALLERGIES Allergies/Adverse Reactions: Allergies Allergy/AdvReac Type Severity Reaction Status Date / Time Penicillins Allergy Intermediate Rash Verified 03/03/24 08:23 - MEDICATIONS Home Medications: Ambulatory Orders Medication Instructions Recorded Confirmed Azithromycin 500 mg PO DAILY 2 Days #2 tablet 03/05/24 cefuroxime axetiL [Ceftin] 500 mg PO Q12H 4 Days #16 tablet 03/05/24 - PHYSICAL EXAM AT DISCHARGE General Appearance: positive: No acute distress, Alert, Other (Appears chronically ill and older than stated age) Eyes Bilateral: positive: Normal inspection, PERRL, EOMI ENT: positive: ENT inspection nml, Pharynx nml, No signs of dehydration Neck: positive: Nml inspection, Thyroid nml, No JVD, Trachea midline Respiratory: positive: No respiratory distress, Rales (Mild crackles in right lung field). negative: Wheezes, Rhonchi Cardiovascular: positive: Regular rate & rhythm, No murmur, No gallop Peripheral Pulses: positive: 2+ Abdomen: positive: Non-tender, No organomegaly, Nml bowel sounds, No distention Back: positive: Nml inspection Skin: positive: Color nml, No rash, Warm, Dry Extremities: positive: Nml appearance, No pedal edema Neurologic/Psychiatric: positive: Oriented x3, CN's nml (2-12), Motor nml, Sensation nml - LABS Result Diagrams: 03/05/24 06:19 03/05/24 06:19 Other Lab Results: Laboratory Tests 03/05/24 03/05/24 03/04/24 06:19 06:19 23:11 WBC 6.3 RBC 3.87 L Hgb 12.3 L Hct 35.6 L MCV 92.0 MCH 31.8 H MCHC 34.6 RDW 11.9 L Plt Count 545 H MPV 9.2 Neut # (Auto) 4.8 Lymph # (Auto) 0.8 L [place] # (Auto) 0.7 Eos # (Auto) 0.0 Baso # (Auto) 0.1 Absolute Nucleated RBC 0.00 Nucleated RBC % 0.0 Sodium 134 L 132 L Potassium 4.1 Chloride 98 L Carbon Dioxide 30 Anion Gap 6.0 BUN 5 L Creatinine 0.6 Estimated GFR (MDRD) 138 Glucose 99 Estimat Average Glucose Hemoglobin A1c % Calcium 9.4 Phosphorus 2.7 Magnesium 1.7 Total Bilirubin AST ALT Alkaline Phosphatase Troponin I High Sens Total Protein Albumin Globulin Albumin/Globulin Ratio Triglycerides Lipase Procalcitonin Immunoas TSH Random Cortisol Urine Color Urine Clarity Urine pH Ur Specific [place] Urine Protein Urine Glucose (UA) Urine Ketones Urine Occult Blood Urine Nitrite Urine Bilirubin Urine Urobilinogen Ur Leukocyte Esterase Urine RBC Urine WBC Ur Squamous Epith Cells Urine Bacteria Urine Culture Comments Urine Sodium Nasal Influenza B PCR Nasal Influenza A PCR Nasal RSV (PCR) Nasal SARS-CoV-2 (PCR) 03/04/24 03/04/24 03/04/24 17:07 10:52 05:17 WBC RBC Hgb Hct MCV MCH MCHC RDW Plt Count MPV Neut # (Auto) Lymph # (Auto) [place] # (Auto) Eos # (Auto) Baso # (Auto) Absolute Nucleated RBC Nucleated RBC % Sodium 133 L 135 Potassium Chloride Carbon Dioxide Anion Gap BUN Creatinine Estimated GFR (MDRD) Glucose Estimat Average Glucose 105 H Hemoglobin A1c % 5.3 Calcium Phosphorus Magnesium Total Bilirubin AST ALT Alkaline Phosphatase Troponin I High Sens Total Protein Albumin Globulin Albumin/Globulin Ratio Triglycerides Lipase Procalcitonin Immunoas TSH Random Cortisol Urine Color Urine Clarity Urine pH Ur Specific [place] Urine Protein Urine Glucose (UA) Urine Ketones Urine Occult Blood Urine Nitrite Urine Bilirubin Urine Urobilinogen Ur Leukocyte Esterase Urine RBC Urine WBC Ur Squamous Epith Cells Urine Bacteria Urine Culture Comments Urine Sodium Nasal Influenza B PCR Nasal Influenza A PCR Nasal RSV (PCR) Nasal SARS-CoV-2 (PCR) 03/04/24 03/04/24 03/03/24 05:17 05:17 20:01 WBC 8.4 RBC 3.39 L Hgb 10.9 L Hct 31.3 L MCV 92.3 MCH 32.2 H MCHC 34.8 RDW 11.8 L Plt Count 480 H MPV 9.3 Neut # (Auto) 6.9 H Lymph # (Auto) 0.6 L [place] # (Auto) 0.8 Eos # (Auto) 0.0 Baso # (Auto) 0.0 Absolute Nucleated RBC 0.00 Nucleated RBC % 0.0 Sodium 134 L 132 L Potassium 3.9 Chloride 100 L Carbon Dioxide 29 Anion Gap 5.0 L BUN 5 L Creatinine 0.5 L Estimated GFR (MDRD) 170 Glucose 121 H Estimat Average Glucose Hemoglobin A1c % Calcium 8.8 Phosphorus 2.7 Magnesium Total Bilirubin AST ALT Alkaline Phosphatase Troponin I High Sens Total Protein Albumin Globulin Albumin/Globulin Ratio Triglycerides Lipase Procalcitonin Immunoas TSH Random Cortisol Urine Color Urine Clarity Urine pH Ur Specific [place] Urine Protein Urine Glucose (UA) Urine Ketones Urine Occult Blood Urine Nitrite Urine Bilirubin Urine Urobilinogen Ur Leukocyte Esterase Urine RBC Urine WBC Ur Squamous Epith Cells Urine Bacteria Urine Culture Comments Urine Sodium Nasal Influenza B PCR Nasal Influenza A PCR Nasal RSV (PCR) Nasal SARS-CoV-2 (PCR) 03/03/24 03/03/24 03/03/24 16:30 16:30 13:15 WBC RBC Hgb Hct MCV MCH MCHC RDW Plt Count MPV Neut # (Auto) Lymph # (Auto) [place] # (Auto) Eos # (Auto) Baso # (Auto) Absolute Nucleated RBC Nucleated RBC % Sodium Potassium Chloride Carbon Dioxide Anion Gap BUN Creatinine Estimated GFR (MDRD) Glucose Estimat Average Glucose Hemoglobin A1c % Calcium Phosphorus Magnesium Total Bilirubin AST ALT Alkaline Phosphatase Troponin I High Sens Total Protein Albumin Globulin Albumin/Globulin Ratio Triglycerides Lipase Procalcitonin Immunoas TSH Random Cortisol Urine Color YELLOW Urine Clarity CLEAR Urine pH 6.5 Ur Specific [place] <=1.005 Urine Protein NEGATIVE Urine Glucose (UA) 100 H Urine Ketones NEGATIVE Urine Occult Blood NEGATIVE Urine Nitrite NEGATIVE Urine Bilirubin NEGATIVE Urine Urobilinogen 0.2 (NORMAL) Ur Leukocyte Esterase NEGATIVE Urine RBC None Seen Urine WBC 0-3 Ur Squamous Epith Cells NONE SEEN Urine Bacteria Rare Urine Culture Comments NOT INDICATED Urine Sodium 32.3 Nasal Influenza B PCR NOT DETECTED Nasal Influenza A PCR NOT DETECTED Nasal RSV (PCR) NOT DETECTED Nasal SARS-CoV-2 (PCR) DETECTED A 03/03/24 03/03/24 03/03/24 12:41 08:33 08:33 WBC RBC Hgb Hct MCV MCH MCHC RDW Plt Count MPV Neut # (Auto) Lymph # (Auto) [place] # (Auto) Eos # (Auto) Baso # (Auto) Absolute Nucleated RBC Nucleated RBC % Sodium 121 L 121 L Potassium 3.6 Chloride 87 L Carbon Dioxide 25 Anion Gap 9.0 BUN 8 Creatinine 0.5 L Estimated GFR (MDRD) 170 Glucose 137 H Estimat Average Glucose Hemoglobin A1c % Calcium 9.1 Phosphorus Magnesium 1.5 L Total Bilirubin 0.7 AST 21 ALT 27 Alkaline Phosphatase 42 Troponin I High Sens < 2.3 L 2.4 Total Protein 7.2 Albumin 3.7 Globulin 3.5 Albumin/Globulin Ratio 1.1 Triglycerides 42 Lipase < 10 L Procalcitonin Immunoas 0.06 TSH 0.63 Random Cortisol 29.5 Urine Color Urine Clarity Urine pH Ur Specific [place] Urine Protein Urine Glucose (UA) Urine Ketones Urine Occult Blood Urine Nitrite Urine Bilirubin Urine Urobilinogen Ur Leukocyte Esterase Urine RBC Urine WBC Ur Squamous Epith Cells Urine Bacteria Urine Culture Comments Urine Sodium Nasal Influenza B PCR Nasal Influenza A PCR Nasal RSV (PCR) Nasal SARS-CoV-2 (PCR) 03/03/24 08:33 WBC 10.6 RBC 3.69 L Hgb 11.5 L Hct 33.1 L MCV 89.7 MCH 31.2 H MCHC 34.7 RDW 11.6 L Plt Count 477 H MPV 8.9 Neut # (Auto) 9.4 H Lymph # (Auto) 0.5 L [place] # (Auto) 0.6 Eos # (Auto) 0.0 Baso # (Auto) 0.1 Absolute Nucleated RBC 0.00 Nucleated RBC % 0.0 Sodium Potassium Chloride Carbon Dioxide Anion Gap BUN Creatinine Estimated GFR (MDRD) Glucose Estimat Average Glucose Hemoglobin A1c % Calcium Phosphorus Magnesium Total Bilirubin AST ALT Alkaline Phosphatase Troponin I High Sens Total Protein Albumin Globulin Albumin/Globulin Ratio Triglycerides Lipase Procalcitonin Immunoas TSH Random Cortisol Urine Color Urine Clarity Urine pH Ur Specific [place] Urine Protein Urine Glucose (UA) Urine Ketones Urine Occult Blood Urine Nitrite Urine Bilirubin Urine Urobilinogen Ur Leukocyte Esterase Urine RBC Urine WBC Ur Squamous Epith Cells Urine Bacteria Urine Culture Comments Urine Sodium Nasal Influenza B PCR Nasal Influenza A PCR Nasal RSV (PCR) Nasal SARS-CoV-2 (PCR) - DIAGNOSTIC IMAGING Diagnostic Imaging Results: Final report reviewed Diagnostic Imaging Results Comments: Chest x-ray 03/03/2024 Slightly diminished lung volumes with patchy bibasilar opacities favored to represent atelectasis. Early developing pneumonia may have a similar appearance if clinically appropriate. No dense consolidations. CTA chest 03/03/2024 No pulmonary embolism. Right middle lobe pneumonia. CT abdomen 03/03/2024 Right middle lobe consolidation concerning for pneumonia in the appropriate clinical setting. No CT evidence of abdominal malignancy. - SEPSIS Current Stage of Sepsis: Ruled out - FOLLOW UP Follow Up: Advised to establish with a local primary care provider. - TIME SPENT Time Spent in Discharge (Minutes): 35
[2024-03-05 15:54] VITALS: BP 132/76; O2SAT 97
== END 2024-03-05 16:30 | disposition home or self-care (01) ==
LOC: ED 07:59 → MS2 12:14 → UNDOADMOB 12:14 → UNDOADMIN 12:14 → INTOOBSV 12:14 → MS2 12:24
PROVIDERS: ADMIT Hospitalist; ATTEND Hospitalist
DX: D75.839 Thrombocytosis, unspecified; Z68.1 Body mass index [BMI] 19.9 or less, adult; E86.0 Dehydration; R53.1 Weakness; E83.42 Hypomagnesemia; U07.1 COVID-19; M54.50 Low back pain, unspecified; R63.4 Abnormal weight loss; E87.1 Hypo-osmolality and hyponatremia; J18.9 Pneumonia, unspecified organism